=== PATIENT | male | born 1995 | race Caucasian/White ===

== ENCOUNTER 2019-01-22 19:22 | Emergency (ER) | payer BC, OTHER ==
--- NOTE | 2019-01-22 19:39 | PDOC ---
Rapid Medical Evaluation Chief Complaint: Pain, Acute Time Seen by Provider: 01/22/19 19:35 Medical Evaluation: 01/22/19 19:35 24 year old male c/o right 3rd digit crush injury after piano fell on finger. tetanus up to date/ A: Patient alert ox3 + right 3rd digit laceration P: patient to fast track xray Discharge Disposition - Diagnosis Laceration - Referrals - Patient Instructions - Post Discharge Activity
[2019-01-22 19:44] VITALS: BP 142/74; PULSE 87; TEMP 98; BMI 35.2
[2019-01-22] MEDS ORDERED: ACETAMINOPHEN 500 MG TABLET (FP) PO ONE (20:50)
[2019-01-22] MEDS ORDERED: ACETAMINOPHEN 500 MG TABLET (FP) ONE (20:56)
--- NOTE | 2019-01-22 21:58 | PDOC ---
History of Present Illness - General Chief Complaint: Laceration Stated Complaint: FINGER INJURY Time Seen by Provider: 01/22/19 19:35 History Source: Patient Exam Limitations: No Limitations - History of Present Illness Initial Comments: 01/22/19 21:52 HISTORY OF PRESENT ILLNESS: 24-year-old male presents emergency department for evaluation of left middle finger injury all moving [employer] out. He reports there were flipping up yellow over when his finger got caught between the top of the p.m. no and the floor. Patient with severe pain in his finger presents with a emergency department for evaluation. RHD. No recent travel or sick contacts. PAST MEDICAL HISTORY: Denies past medical history SURGICAL HISTORY: Denies ALLERGIES: No known drug allergies REVIEW OF SYSTEMS General/Constitutional: Denies fever or chills. Denies weakness, weight change. HEENT: Denies change in vision. Denies ear pain or discharge. Denies sore throat. Cardiovascular: Denies chest pain or shortness of breath. Respiratory: Denies cough, wheezing, or hemoptysis. Gastrointestinal: Denies nausea, vomiting, diarrhea or constipation. Denies rectal bleeding. Genitourinary: Denies dysuria, frequency, or change in urination. Musculoskeletal: see HPI Skin and breasts: Denies rash or easy bruising. Neurologic: Denies headache, vertigo, loss of consciousness, or loss of sensation. Psychiatric: Denies depression or anxiety. Endocrine: Denies increased thirst. Denies abnormal weight change. Hematologic/Lymphatic: Denies anemia, easy bleeding, or history of blood clots. Allergic/Immunologic: Denies hives or skin allergy. Denies latex allergy. PHYSICAL EXAM General Appearance: Well-appearing, appropriately dressed. No apparent distress , no intoxication. Musculoskeletal/Extremities: Normal inspection. FROM of all extremities, normal capillary refill. Pelvis Stable. No CVA tenderness. No pedal edema, swelling, erythema or deformity. TTP over distal phalanx of left 3rd finger. Integumentary: 1 centimeter laceration present to the palmar surface of the left third digit over the distal phalanx. 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 Fully oriented, alert. Appropriate mood/affect. Motor strength 5/5. No appreciable EOM palsy, facial droop or sensory deficit. Past History - Past Medical History Allergies/Adverse Reactions: Allergies Allergy/AdvReac Type Severity Reaction Status Date / Time sesame seed Allergy Verified 01/22/19 19:40 seafood Allergy Uncoded 01/22/19 19:41 Home Medications: Ambulatory Orders Amox-Tr/K Cl [Augmentin - 875Mg Tablet] 1 tab PO BID #14 tablet 01/22/19 COPD: No - Suicide/Smoking/Psychosocial Hx Smoking History: Never smoked Have you smoked in the past 12 months: No Information on smoking cessation initiated: No Hx Alcohol Use: No Drug/Substance Use Hx: No *Physical Exam - Vital Signs Last Vital Signs Temp Pulse Resp BP Pulse Ox 98 F 87 16 142/74 100 01/22/19 19:25 01/22/19 19:25 01/22/19 19:25 01/22/19 19:25 01/22/19 19:25 Procedures - Consent Consent obtained: Verbal, From Patient - Laceration/Wound Repair Left Volar Finger 3rd digit Wound Length: to 2.5 cm Wound Explored: clean Wound's Depth, Shape: superficial, irregular Irrigated w/ Saline: Yes Betadine Prep: Yes Anesthesia: 2% Lidocaine Amount of Anesthetic (ccs): 5 Wound Debrided: minimal Wound Repaired With: Sutures Suture Size/Type: 5:0 Number of Sutures: 4 Layer Closure: No Sterile Dressing Applied: Yes Splint Applied: Yes Type of Splint Applied: Nurse practitioner made distal straight finger splint Progress: 01/22/19 22:07 pt tolerated well ED Treatment Course - Medications Given in the ED: ED Medications Discontinued Medications Generic Name Dose Route Start Last Admin Trade Name Freq PRN Reason Stop Dose Admin Acetaminophen 1,000 mg 01/22/19 20:50 01/22/19 21:07 Tylenol - PO 01/22/19 20:51 1,000 mg ONCE ONE Administration Medical Decision Making - Medical Decision Making 01/22/19 21:58 A/P: 24-year-old male with open fracture of the distal phalanx third digit of the left hand Right-hand dominant 1 cm linear laceration to the palmar surface of the third digit of the left hand over the distal phalanx X-rays reveal a tuft fracture of the distal phalanx of the left third digit Laceration repair Discharge home on antibiotics Referral for *DC/Admit/Observation/Transfer Diagnosis at time of Disposition: Laceration Open fracture of finger, distal phalanx Qualifiers: Encounter type: initial encounter Finger: middle finger Fracture alignment: nondisplaced Laterality: left Qualified Code(s): S62.663B - Nondisplaced fracture of distal phalanx of left middle finger, initial encounter for open fracture - Discharge Dispostion Disposition: HOME Condition at time of disposition: Stable Decision to Admit order: No - Prescriptions Prescriptions: Amox-Tr/K Cl [Augmentin - 875Mg Tablet] 1 tab PO BID #14 tablet - Referrals Referrals: ON STAFF,NOT [Primary Care Provider] - Pasha Thomas MD [Staff Physician] - - Patient Instructions Printed Discharge Instructions: DI for Laceration Repair Additional Instructions: Take antibiotics as directed. Please finish all antibiotics even if you feel better. You have been given a referral for a hand specialist. Call tomorrow to schedule an appointment within the next 7 days. Keep wound clean and dry Avoid strenuous activity/exercise to create a hot or sweaty environment until sutures are removed Reapply bacitracin ointment 2 times a day until sutures are removed Return to emergency Department or private physician in 5-7 days for suture removal May use Tylenol or Motrin for pain relief Return immediately to emergency department for redness, swelling, pain, or signs of infection - Post Discharge Activity Forms/Work/School Notes: Back to Work
== END 2019-01-22 22:56 | disposition home or self-care (01) ==
LOC: JERFT 19:22
PROC: 0HQGXZZ Repair Left Hand Skin, External Approach (ICD-10-PCS; principal; 2019-01-22)
PROC: 2W3KX1Z Immobilization of Left Finger using Splint (ICD-10-PCS; 2019-01-22)
DX: S62.663B Nondisplaced fracture of distal phalanx of left middle finger, initial encounter for open fracture (principal); W23.0XXA Caught, crushed, jammed, or pinched between moving objects, initial encounter; Y93.89 Activity, other specified; Y92.89 Other specified places as the place of occurrence of the external cause; Y99.8 Other external cause status
CPT/HCPCS: 73140-TC-LT-FY; 99281-25